=== PATIENT | male | born 1990 | race Caucasian/White ===

== ENCOUNTER 2020-07-28 14:25 | Emergency (ER) | payer BC, SELFPAY ==
--- NOTE | 2020-07-28 14:27 | US_ITS ---
WS: [id number] SCROTAL ULTRASOUND EXAMINATION CLINICAL INFORMATION: swollen COMPARISON: None. FINDINGS: TESTES Normal in size and echotexture. Incidental echogenic focus right testicle.. Color Doppler: Normal color Doppler flow pattern. Right testes size: 4.3 cm x 3.0 cm x 2.4 cm. Left testes size: 3.4 cm x 3.1 cm x 1.9 cm. EPIDIDYMIDES Normal in size and echotexture, without focal lesion. Color Doppler: Normal color Doppler flow pattern. Right epididymis size: 0.6 cm x 0.7 cm x 1.1 cm. Left epididymitis size: 1.0 cm x 0.7 cm x 1.0 cm. HYDROCELE None. VARICOCELE Small left varicocele measuring 1.7 x 1.1 cm OTHER FINDINGS None. US/US scrotum [id number] IMPRESSION: 1. Testicles are normal in size and echotexture. 2. Normal epididymis bilaterally. 3. Small left varicocele measuring 4. No hydroceles.
[2020-07-28 14:33] VITALS: BP 128/87; PULSE 104; RESP 18; TEMP 36.4; O2SAT 97; BMI 21.9
--- NOTE | 2020-07-28 15:34 | W.ED.GENADLT ---
HPI - General Adult General: Chief complaint: General Medical Stated complaint: Swollen Testicles Time Seen by Provider: 07/28/20 14:39 Source: patient Mode of arrival: ambulatory Limitations: no limitations History of Present Illness: HPI narrative: 30-year-old male patient presents to the emergency department stating he has a right swollen testicle that was an acute onset about an hour prior to arrival. Patient states he has pain in the groin and right testicle. Patient denies any fever. Patient denies any abdominal pain or back pain. Patient denies any penile discharge. Patient states he has no reason or suspicion for STDs. Patient has no past medical history patient denies nausea vomiting Associated symptoms: Deny chest pain, dyspnea, headache(s), nausea, palpitations or vomiting Review of Systems General: Reports: 10 or more systems reviewed and unremarkable except in HPI and below Const: Denies: fever(s) or chills Card: Denies: chest pain or palpitations Resp: Denies: dyspnea, productive cough or non-productive cough GI: Denies: abdominal pain, nausea, vomiting, diarrhea or constipation : Reports: scrotal swelling; Denies: flank pain, difficulty urinating, dysuria, urinary frequency, urinary urgency, urinary hesitancy or urinary dribbling Musc: Denies: neck pain or back pain Neuro: Denies: headache(s) Psych: Denies: suicidal ideation or homicidal ideation Physical Exam Const: COMMON NORMALS: no acute distress, average body habitus, patient oriented x3, no limitations, healthy appearing and alert HENMT: COMMON NORMALS: normocephalic and atraumatic HEAD & SCALP: normocephalic and atraumatic Eye: COMMON NORMALS: Equal, round and reactive pupils present and EOMs intact bilaterally PUPIL: Yes Equal, round and reactive pupils present Neck/C-Spine: COMMON NORMALS: full ROM Lymph: LYMPHATIC: no lymphadenopathy noted and no lymphedema noted Resp: COMMON NORMALS: normal respiratory effort and No retractions Cardio: COMMON NORMALS: regular rate and regular rhythm RATE: regular rate RHYTHM: regular rhythm GI: COMMON NORMALS: Normal to inspection, nondistended, normoactive bowel sounds present, Soft to palpation, non-tender, No hepatosplenomegaly present, no masses and no bruits PALPATION: Yes Soft to palpation and Yes No hepatosplenomegaly present : COMMON NORMALS: Yes no CVA tenderness, Yes normal external exam, Yes Testes normal, Yes scrotum normal, Yes no scrotal swelling and Yes No hernias present BLADDER/KIDNEY EXAM: Yes no CVA tenderness PENIS: normal penis SCROTUM: Yes testes descended bilaterally and Yes Cremasteric reflex present TESTES: Yes testicular lie normal Back/Pelvis: COMMON NORMALS: no CVA tenderness Neuro: COMMON NORMALS: patient oriented x3 SENSORIUM/ORIENTATION: Yes alert Course Vital Signs: Vital signs: Vital Signs Temperature 97.5 F L 07/28/20 14:33 Pulse Rate 104 H 07/28/20 14:33 Respiratory Rate 18 07/28/20 14:33 Blood Pressure 128/87 07/28/20 14:33 Pulse Oximetry 97 07/28/20 14:33 MDM - General Adult MDM Narrative: Medical decision making narrative: Patient is well-appearing nontoxic and in no acute distress. Patient's ultrasound did not reveal any concerning findings there was no evidence of testicular torsion good blood flow blood flow was identified. There is no evidence of epididymitis. Upon reassessment of patient patient states his scrotal swelling has completely resolved as well as his pain. It is possible patient had testicular torsion that resolved on its own. I will set patient up to follow-up with urology. Urinalysis did not reveal any signs of infection I did send off for STD testing I did advise patient that we will call him with any positive results and adjust treatment as needed at that time. Again I will have patient follow-up with urology I discussed with patient return precautions as well as home care. Patient is medically cleared and appropriate for discharge case was discssued with Dr. Mckeon Lab Data: Labs: Lab Results 07/28/20 Range/Units 15:25 Urine Color Yellow (Yellow) Urine Appearance Clear (CLEAR) Urine pH 5 (5-7) Ur Specific Gravit y 1.025 (1.005-1.030) Urine Protein Neg (Negative) Urine Glucose (UA) Norm (Normal) Urine Ketones Negative (Negative) Urine Blood Neg (Negative) Urine Nitrate Negative (Negative) Urine Bilirubin Neg (Negative) Urine Urobilinogen Norm (Negative) mg/dL Ur Leukocyte Lorin ase Negative (Negative) Discharge Plan Discharge Patient Disposition: Home Clinical Impression: Acute pain in scrotum Condition: Stable Prescriptions: No Action cetirizine 10 mg Tablet 10 mg PO DAILY@0800 RF: 0 Discharge Orders: Discharge ED (Routine); Ordered 07/28/20 Ordered By: Tracie Joyce Discharge Diet: Advance as tolerated Discharge Activity: Resume usual activity Activity Restrictions/Additional Instructions: Please return to ER with any worsening of symptoms We will call you with any positive STD results and adjust treatment if needed at that time Please follow up with Urology - child welfare caseworker will call you with follow up information Coding Level of Care Code ED Dictionary Editor for Allison Fwd Exam Comprehensive
[2020-07-28 15:54] LABS: Add Urine Microscopic? NO
[2020-07-28 16:03] LABS: Bilirubin Urine Neg (Negative); Blood Urine Neg (Negative); Glucose Urine UA Norm (Normal); Ketones Urine Negative (Negative); Leukocyte Esterase Urine Negative (Negative); Nitrate Urine Negative (Negative); Protein Urine Neg (Negative); Specific Gravity, Urine 1.025 (1.005-1.030); Urine Appearance Clear (CLEAR); Urine Color Yellow (Yellow); Urobilinogen Urine Norm (Negative); pH Urine 5 (5-7)
[2020-07-28 16:43] VITALS: PULSE 111; O2SAT 98
== END 2020-07-28 16:44 | disposition home or self-care (01) ==
PROVIDERS: Emergency Provider Registered Nurse
DX: N50.82 Scrotal pain (principal)
CPT/HCPCS: 12345; 76870; 81003; 87491; 87591; 99281; 99283